=== PATIENT | male | born 1970 | race Caucasian/White ===

== ENCOUNTER 2016-10-11 17:42 | Emergency (ER) | payer SELFPAY ==
[~2016-10-11] VITALS: Ht 165.1 cm; Wt 70.0 kg
[2016-10-11 17:47] VITALS: Ht 165.1 cm; Wt 70.0 kg
[2016-10-11 17:56] VITALS: BP 129/75; PULSE 82; RESP 16
--- NOTE | 2016-10-11 18:06 | ERD ---
ER Documentation Chief Complaint Date/Time DATE: 10/11/16 TIME: 18:04 Chief Complaint ETOH found on the street no KO HPI Patient is a 46-year-old male with no medical problems who presents with alcohol intoxication. The patient was brought in by ambulance. His sugar was elevated at 233. He has no complaints. He did not want to be brought to the emergency department. He is answering all questions appropriately. Upon review of old medical records this is the patient's first visit to the emergency department. The patient says that he was just sleeping close to his house and wants to go home at this time. He does not currently have a primary doctor. ROS All systems reviewed and are negative except as per history of present illness. Allergies Allergies: Coded Allergies: No Known Allergy (Unverified , 10/11/16) PMhx/Soc Medical and Surgical Hx: pt denies Medical Hx FmHx Family History: diabetes Physical Exam Vitals Vital Signs Date Time Temp Pulse Resp B/P Pulse Ox O2 Delivery O2 Flow Rate FiO2 10/11/16 17:56 82 16 129/75 10/11/16 17:47 97.8 100 18 158/96 98 Physical Exam Const: No acute distress Head: Atraumatic Eyes: Normal Conjunctiva ENT: Normal External Ears, Nose and Mouth. Neck: Full range of motion..~ No meningismus. Resp: Clear to auscultation bilaterally Cardio: Regular rate and rhythm, no murmurs Abd: Soft, non tender, non distended. Normal bowel sounds Skin: No petechiae or rashes Back: No midline or flank tenderness Ext: No cyanosis, or edema Neur: Awake and answering questions appropriately, stable gait Procedures/MDM Smoking Cessation Therapy: Pt. was lectured for greater than 3 minutes on the health risks of continued smoking and the benefits of cessation. Patient is a 46-year-old male who presents with alcohol intoxication. At this point he has no complaints and does not want to be here. He is answering questions appropriately and is stable on his feet. He was able to walk out of the emergency department under his own power. I do not believe he requires further workup or admission to the hospital at this time. The patient can return for any worsening symptoms. He was instructed not to drink alcohol to excess. Departure Diagnosis: Primary Impression: Alcohol intoxication Complication of substance-induced condition: uncomplicated Qualified Code: F10.120 - Alcohol intoxication, uncomplicated Condition: Fair Patient Instructions: Alcohol Intoxication [facility]: [facility] Usted se delgado hecho un examen mdico de control que le indica que no est en ivan condicin que requiera tratamiento urgente en el Departamento de Emergencia. Un estudio ms profundo y el tratamiento de khanna condicin pueden esperar sin ningn riesgo hasta que usted sea atendida/o en el consultorio de khanna mdico o ivan cl garret. Es responsabilidad suya arreglar ivan jacy para el seguimiento del may. MANEJO DE CONDICIONES NO URGENTES EN EL FUTURO 1) Si usted tiene un mdico de atencin primaria: Usted debera llamar a khanna mdico de atencin primaria antes de venir al departamento de emergencia. Despus de las horas de consultorio, khanna doctor o khanna asociado/a est disponible por telfono. El mdico o enfermero de laura en el servicio telefnico puede asesorarle por denisse medio para atender el problema, o may contrario se puede programar ivan jacy. 2) Si usted no tiene un mdico de atencin primaria: Llame al mdico o clnica de referencia que aparece abajo reuben las horas de consultorio para hacer ivan jacy para que le vean. CLINICAS: [facility] [phone] [facility] [phone] [facility] [phone] [facility] [phone] [place] [phone] [facility]. [phone] [address] Additional Instructions: Llame al doctor MAANA y reddy ivan JACY PARA DENTRO DE 1-2 MUNOZ.Dgale a la secretaria que nosotros le instruimos hacer esta jacy.Avise o llame si khanna condicin se empeora antes de la jacy. Regresa aqui si peor o no mejor. SHAY LYNN MD Oct 11, 2016 18:06
== END 2016-10-11 18:00 | disposition left against medical advice (07) ==
LOC: E/R 17:42
DX: F10.120 Alcohol abuse with intoxication, uncomplicated (principal)
CPT/HCPCS: 99282

== ENCOUNTER 2017-03-07 16:17 | Emergency (ER) | payer SELFPAY ==
[~2017-03-07] VITALS: Wt 75.0 kg
== END 2017-03-07 20:41 | disposition left against medical advice (07) ==
LOC: E/R 16:17
DX: Z53.21 Procedure and treatment not carried out due to patient leaving prior to being seen by health care provider (principal)

== ENCOUNTER 2017-03-09 11:52 | Emergency (ER) | payer MEDICAID ==
[~2017-03-09] VITALS: Wt 78.0 kg
[2017-03-09] MEDS ORDERED: HYDROCODONE/APAP (5/325) TAB PO ONE (14:30)
--- NOTE | 2017-03-09 14:44 | RADRPT ---
PROCEDURE: XR Pelvis CLINICAL INDICATION: Trauma TECHNIQUE: An AP radiograph was submitted. COMPARISON: None FINDINGS: Osseous structures: appear well mineralized and intact with no fracture or destructive process iden tified. Joint spaces: The hip joints appear unremarkable. There is no distension of either joint capsule. the sacroiliac joints appear unremarkable without significant erosions or sclerosis. Soft tissues: appear unremarkable. IMPRESSION: Unremarkable pelvis. Physician Ally Date Time Electronically viewed and signed by Marlys Florian Physician on 03/09/2017 14:43 /
--- NOTE | 2017-03-09 14:47 | RADRPT ---
PROCEDURE: XR Left Hip CLINICAL INDICATION: Trauma TECHNIQUE: AP and frog-leg views were submitted. COMPARISON: None FINDINGS: Osseous structures: appear well mineralized and intact with no fracture or destructive process iden tified. Joint spaces: The hip joint is well maintained there is no distension of the joint capsule. Soft tissues: appear unremarkable. IMPRESSION: Unremarkable left hip. Physician Ally Date Time Electronically viewed and signed by Marlys Florian Physician on 03/09/2017 14:47 /
[2017-03-09] MEDS ORDERED: IBUP800T25 PO (15:53)
[2017-03-09] MEDS ORDERED: HYDR-902 PO (15:53)
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
[2017-03-09 17:12] VITALS: BP 119/73; PULSE 102; RESP 20; TEMP 98.3
== END 2017-03-09 18:21 | disposition home or self-care (01) ==
LOC: E/R 11:52
DX: S89.92XA Unspecified injury of left lower leg, initial encounter (principal); Y08.89XA Assault by other specified means, initial encounter
CPT/HCPCS: 72170; 73510; Z7502; Z7610

== ENCOUNTER 2017-04-23 22:06 | Emergency (ER) | payer SELFPAY ==
[~2017-04-23] VITALS: Ht 182.9 cm; Wt 76.0 kg
[~2017-04-23 22:06] MED LIST: HYDR-902 PO; IBUP800T25 PO
[2017-04-23 22:13] VITALS: Ht 182.9 cm; Wt 76.0 kg
== END 2017-04-24 01:47 | disposition left against medical advice (07) ==
LOC: E/R 22:06
DX: Z53.21 Procedure and treatment not carried out due to patient leaving prior to being seen by health care provider (principal)

== ENCOUNTER 2017-12-18 23:38 | Emergency (ER) | END 2017-12-19 05:41 | disposition home or self-care (01) ==

== ENCOUNTER 2018-03-02 13:12 | Emergency (ER) | END 2018-03-02 17:02 | disposition home or self-care (01) ==